=== PATIENT | female | born 1960 | race African-American/Black ===

== ENCOUNTER 2016-09-04 18:36 | Inpatient (IN) | payer OTHER ==
--- NOTE | ~2016-09-04 | HP ---
History And Physical [place] [address] [facility] [place]. [address] NAME: ALEX HARVEY : 56 STATUS : ADM IN [facility]#: [id number] AGE: 55 ADM/REG DATE : 09/04/16 MR#: [id number] REPORT SERV DATE: 09/05/16 DICTATED BY: DELFINO JOSHI DATE: 09/04/16 REPORT STATUS : Draft TRANSCRIBED BY: MODL DATE: 09/04/16 DATE OF ADMISSION: 09/04/2016 POINT OF ENTRY: [facility] Emergency Department. PRIMARY CARE PHYSICIAN: Dr. Erickson. PRIMARY ONCOLOGIST: Dr. Aragon. CHIEF COMPLAINT: Abdominal pain, nausea, and vomiting. HISTORY OF PRESENT ILLNESS: Ms. Harvey is a 55-year-old female with history of HTLV-1 associated T-cell lymphoma, currently undergoing oral chemotherapy who presents to the emergency department today with a few day history of abdominal pain, nausea, vomiting, and anorexia. The family who was at bedside states that she has had 4-5 days of the above-mentioned symptoms. She has also not been eating or drinking much as the family has been trying to push food and water but after just a few sips or bites of either, she stops and says that she is full. They do state she has been able to continue to take her chemotherapy. The patient saw Dr. Aragon in clinic yesterday, where she received some IV fluids. Labs were drawn, which I am unable to see the results of those labs. Initial evaluation in the emergency department for a blood pressure of 100/67, pulse initially 130, it is now improved about 105. She is severely dehydrated with a sodium level of 154, BUN 33, creatinine 1.76, as well as a calcium level of 6.0. Lactate is elevated at 3.7, but white count is normal. Urinalysis is pending. Chest x-ray is clear. CT scan of the abdomen and pelvis shows splenomegaly as well as some mild ascites and nodular densities in the omentum, but otherwise, no evidence of any obstruction or obvious infection in the peritoneum. The patient was given 1 L of normal saline with minimal improvement of the patient's blood pressure and subsequently admitted to the Hospitalist Service for further evaluation and management. She denies any fevers, night sweats, chills, chest pain, palpitations, shortness of breath, cough, sputum production, dysuria, melena, hematochezia, or hemoptysis. Comprehensive system otherwise negative unless listed in history of present illness. PREVIOUS MEDICAL HISTORY: HTLV-1 associated T-cell lymphoma undergoing chemotherapy. SURGICAL HISTORY: 1. Abdominal hysterectomy. 2. Exploratory laparotomy and lysis of adhesions for small bowel obstruction. ALLERGIES: ROBAXIN. History And Physical [address] [address] NAME: ALEX HARVEY : 56 STATUS : ADM IN [facility]#: [id number] AGE: 55 ADM/REG DATE : 09/04/16 MR#: [id number] REPORT SERV DATE: 09/05/16 DICTATED BY: DELFINO JOSHI DATE: 09/04/16 REPORT STATUS : Draft TRANSCRIBED BY: NEELAM DATE: 09/04/16 HOME MEDICATIONS: 1. Decadron 4 mg b.i.d. 2. Revlimid 25 mg at bedtime. SOCIAL HISTORY: Denies any tobacco, alcohol, or illicits. FAMILY MEDICAL HISTORY: Mother with hypertension and coronary disease. Father with coronary disease. Siblings with lung cancer. LABS AND IMAGIN. White count is 8.2, hemoglobin 14.2, hematocrit 41.8, platelet count is 84, INR is 1.5. 2. Sodium 134, potassium 3.2, chloride 117, carbon dioxide 33, BUN 33, creatinine 1.76, glucose 145, calcium 16.0, protein 6.2, albumin 3.4, bilirubin 0.5, ALT 15, AST 9, alkaline phosphatase 103. 3. Lipase is 79. 4. Lactic acid 3.7. 5. CT scan of the abdomen and pelvis shows splenomegaly with mild ascites as well as some nodular densities of the omentum and some retroperitoneal lymphadenopathy. 6. Chest x-ray per my review shows no acute cardiopulmonary abnormality. EKG per my review shows sinus tachycardia with rate 130s. No evidence of any acute ischemia or infarction. PHYSICAL EXAMINATION: VITAL SIGNS: Temperature is 98.6 degrees Fahrenheit, pulse is 130, respirations 24, saturating 96% on room air, blood pressure 100/67. On recheck, pulse is now 107, blood pressure is 89/56. GENERAL: The patient is awake, alert, and in no acute distress, but she is a chronically ill appearing, very cachectic and frail elderly female. Family is at bedside. HEENT: Atraumatic and normocephalic. Slightly dry mucous membranes. Pupils are equal, round, reactive to light and accommodation. Extraocular movements intact. No scleral icterus. NECK: No jugular venous distention or carotid bruits. CARDIAC: Tachycardic rate, regular rhythm. LUNGS: Clear to auscultation bilaterally. No wheezes, rhonchi, or crackles. ABDOMEN: Soft, mildly tender to palpation over all quadrants. No rebound, guarding, or rigidity. EXTREMITIES: Warm and perfused. No cyanosis, clubbing, or edema. Very frail, thin, and cachectic. SKIN: Warm and dry. PSYCH: Affect appropriate. NEURO: Alert and oriented x3. Cranial nerves 2 through 12 grossly intact. Speech is normal. Gait not assessed. ASSESSMENT AND PLAN: Ms. Harvey is a 55-year-old female with HTLV-1 associated lymphoma who is undergoing active chemotherapy who presents with abdominal pain, nausea, vomiting, and found to have evidence of acute kidney injury, hypercalcemia, hypernatremia as well as hypotension. History And Physical [address] [address] NAME: ALEX HARVEY : 56 STATUS : ADM IN [facility]#: [id number] AGE: 55 ADM/REG DATE : 09/04/16 MR#: [id number] REPORT SERV DATE: 09/05/16 DICTATED BY: DELFINO JOSHI DATE: 09/04/16 REPORT STATUS : Draft TRANSCRIBED BY: MODMaya DATE: 09/04/16 PROBLEM LIST: 1. Acute kidney injury and dehydration. 2. Hypernatremia. 3. Hypercalcemia. 4. Hypokalemia. 5. Abdominal pain, nausea, and vomiting. 6. Hypotension. 7. Elevated lactic acid level. 8. T-cell lymphoma undergoing chemotherapy. PLAN: 1. Acute kidney injury and dehydration. I provided aggressive IV fluid hydration, likely secondary to poor oral intake as well as GI losses with some contribution from her hypercalcemia. Checking urine lytes as well as urinalysis. 2. Hypernatremia. After initial fluid resuscitation, we will provide maintenance fluids with hypotonic fluids. 3. Hypercalcemia. Aggressive IV fluid hydration. Checking ionized calcium level, further treatment based on ionized calcium level. 4. Hypotension, likely secondary to dehydration and poor oral intake. However, given underlying chemotherapy, she is at risk for possible infection. She has also been receiving oral Decadron, so relative adrenal insufficiency is also a possibility. We will treat with aggressive IV fluid hydration, empiric antibiotics at least overnight, as well as Solu-Cortef. 5. Elevated lactic acid level. Again given concern for possible infection and given active chemotherapy despite the lack of obvious source and normal white count, we will empirically cover with broad-spectrum antibiotics. Aggressive IV fluid hydration and recheck lactic acid level in three hours. 6. T-cell lymphoma, under active chemotherapy. Holding the patient's chemotherapy as well as Decadron. Consult Oncology for assistance. 7. Deep vein thrombosis prophylaxis. Lovenox subcu. CODE STATUS: The patient wishes to be full code. JCB/MODL Delfino Joshi MD / [id number] CC: Attila Vieira M.D.
--- NOTE | ~2016-09-04 | DS ---
Discharge Summary [address] [place]. [address] NAME: ALEX HARVEY : 56 STATUS : DIS IN PAT#: [id number] AGE: 55 ADM/REG DATE : 09/04/16 MR#: [id number] REPORT SERV DATE: 09/10/16 DICTATED BY: LUIS ALBERTO MARINELLI DATE: 09/09/16 REPORT STATUS : Draft TRANSCRIBED BY: MODL DATE: 09/09/16 ADMISSION DATE: 09/04/2016 DISCHARGE DATE: 09/09/2016 DISCHARGE DIAGNOSES: 1. T-cell lymphoma with carcinomatosis. 2. HTLV-1 infection. 3. Dehydration. 4. Acute kidney injury, now resolved. 5. Hyponatremia, now resolved. 6. Severe protein-calorie malnutrition. 7. History of spinal subdural abscess. 8. Abdominal pain, nausea and vomiting, now resolved. 9. Hypercalcemia of malignancy, currently stable. 10.Hypokalemia, now resolved. CONSULTANTS DURING THIS HOSPITALIZATION: Adrián Aragon M.D., of Hematology/Oncology. INVASIVE PROCEDURES DONE DURING THIS HOSPITALIZATION: None. BRIEF HISTORY OF PRESENT ILLNESS: The patient is a 55-year-old female with T-cell lymphoma with metastatic disease presented to the hospital with abdominal pain, nausea, vomiting, so she was admitted. For detailed history and physical exam, please see note dictated by Dr. Dave Kaur, on 09/04/2016. HOSPITAL COURSE: After being admitted to the hospital, this patient was seen by Oncology and it was thought that this patient would need hospice, hospice was consulted and the patient has been accepted in hospice. In the interim over the last five days, we treated her electrolyte abnormalities with IV fluids and we gave her reasonable pain control. CT of the abdomen and pelvis showed large retroperitoneal adenopathy and small nodules within the mesentery, which was consistent with metastatic disease and carcinomatosis. This patient currently is comfortable and feels well enough, she has been seen by hospice accepted and will be discharged home under the care of hospice. DISCHARGE DISPOSITION: Home. DISCHARGE ACTIVITY: As tolerated. DISCHARGE DIET: As tolerated. DISCHARGE MEDICATIONS: Will be deferred to hospice. DISCHARGE FOLLOWUP: Will be by [facility]. More than 30 minutes spent planning this patient's discharge, discussing followup and arranging hospice care. Discharge Summary [address] [place]. [address] NAME: ALEX HARVEY : 56 STATUS : DIS IN PAT#: [id number] AGE: 55 ADM/REG DATE : 09/04/16 MR#: [id number] REPORT SERV DATE: 09/10/16 DICTATED BY: LUIS ALBERTO MARINELLI DATE: 09/09/16 REPORT STATUS : Draft TRANSCRIBED BY: NEELAM DATE: 09/09/16 DICTATED BY: Attila Reza/NEELAM Luis Alberto Marinelli M.D. / [id number] CC: Attila Reza M.D. Edward Arrowsmith, M.D.
[~2016-09-04 18:36] MED LIST: ALEVE220 MG PO; AMB5 PO; ATV.5 PO; B121000P IM; COMP10B PO; MAXIMUM D3 PO; METHOC750B PO; MIRALAXPKT PO; MOUTH WASH PO; NO HOME MEDS; NYS500UDL PO; PEPTO-BISMOL TA1 TAB PO; PERCOCET1 TA2 PO; PR12.5 PO; SEPTRA DS1 TAB PO; T PO; ULTRAM50 PO; VICODINTAB PO; VITAMIN B PO; ZOFRAN4 PO; ZOVIRAX400 MG PO
[2016-09-04 19:28] LABS: BASOPHILS 1.5 %; BASOPHILS ABSOLUTE 0.12 10/3/uL (0.0-0.16); EOSINOPHILS 1.8 %; EOSINOPHILS ABSOLUTE 0.15 10/3/uL (0.0-0.53); HEMOGLOBIN 14.2 g/dL (12.0-16.0); IMMATURE GRANULOCYTES 0.2 %; IMMATURE GRANULOCYTES ABSOLUTE 0.02 10/3/uL (0.0-0.11); LYMPHOCYTES 46.3 %; LYMPHOCYTES ABSOLUTE 3.79 10/3/uL (0.67-4.30); MEAN CORPUSCULAR HEMOGLOB 30.5 pg (26.0-34.0); MONOCYTES ABSOLUTE 1.39 10/3/uL (0.21-1.20); NEUTROPHILS 33.2 %; NEUTROPHILS ABSOLUTE 2.72 10/3/uL (2.02-8.40); RBC DISTRIBUTION WIDTH 16.4 % (12.0-16.0); RED CELL COUNT 4.65 10/6/uL (4.0-5.6)
[2016-09-04 19:35] LABS: INTERNATIONAL NORMAL RATI 1.5 UNITS (-)
[2016-09-04 19:36] LABS: ER CBC TAT 0 Hrs 21 Mins; HEMATOCRIT 41.8 % (36.0-48.0); MANUAL DIFF NO %; MEAN CORPUSCULAR VOLUME 89.9 fL (80-100); PLATELET COUNT 89 10/3/uL (150-400); WHITE BLOOD CELLS 8.2 10/3/uL (4.5-10.5)
[2016-09-04 19:42] LABS: PARTIAL THROMBO TIME 22.4 SEC (22.5-37.2); PROTIME (NOT ORD) 17.9 SEC (12.0-14.5)
[2016-09-04 19:43] LABS: CHLORIDE, SERUM 117 MMOL/L (96-112); POTASSIUM, SERUM 3.2 MMOL/L (3.5-5.3); SGOT(AST) 9 U/L (5-40); SGPT(ALT) 15 U/L (5-65); TOTAL PROTEIN 6.2 G/DL (6.0-8.5)
[2016-09-04 19:44] LABS: A/G RATIO 1.2 (0.7-1.9); ALBUMIN 3.4 G/DL (3.5-5.0); ALKALINE PHOSPHATASE 103 U/L (45-117); BUN (BLOOD UREA NITROGEN) 33 MG/DL (6-23); CO2 (CARBON DIOXIDE) 33 MMOL/L (24-34); CREATININE 1.76 MG/DL (0.55-1.02); GFR AFRICAN AMERICAN 37 ML/MIN (>=60); GFR NON AFRICAN AMERICAN 32 ML/MIN (>=60); GLOBULIN 2.8 G/DL (2.5-4.1); GLUCOSE, SERUM 145 MG/DL (60-99); SODIUM, SERUM 154 MMOL/L (135-148); TOTAL BILIRUBIN 0.5 MG/DL (0-1.2)
[2016-09-04 19:46] LABS: LACTATE 3.7 MMOL/L (0.3-2.4)
[2016-09-04 19:54] LABS: BAND NEUTROPHILS 2 %; BASOPHILS 3 %; BASOPHILS ABSOLUTE (CALC) 0.25 10/3/uL (0.0-0.16); ER DIFF TAT 0 Hrs 39 Mins; LYMPHOCYTES 46 %; LYMPHOCYTES ABSOLUTE (CALC) 3.77 10/3/uL (0.67-4.30); MONOCYTES 10 %; MONOCYTES ABSOLUTE (CALC) 0.82 10/3/uL (0.21-1.20); NEUTROPHILS ABSOLUTE (CALC) 3.36 10/3/uL (2.02-8.40); SEGMENTED NEUTROPHIL (0) 39 %; TOTAL NUCLEATED CELLS 100
[2016-09-04 19:55] LABS: ATYPICAL LYMPH FEW (3-5%) (0-5%); PLATELET ESTIMATE DEC (ADEQUATE); TARGET CELLS OCC (1-2/OIF) (0-1/OIF)
[2016-09-04] MEDS ORDERED: DEX4 PO (22:15)
[2016-09-04] MEDS ORDERED: REVLIMID25 MG PO (22:16)
[2016-09-04 23:47] LABS: ASCORBIC ACID (UR NOT ORDER) NEG (NEG); BILIRUBIN, URINE NEGATIVE (NEG); ER URINALYSIS TAT 0 Hrs 00 Mins; KETONE, URINE NEGATIVE (NEG); LEUKOCYTE ESTERASE(NOT OR SMALL (NEG); NITRITE (URINE) NEG (NEG); WBC (NOT ORDERED) (RFLEX) 4 (0-5)
[2016-09-04 23:55] LABS: PROCALCITONIN 0.43 ng/mL (<0.5)
[2016-09-05 02:09] LABS: CREATININE, URINE 51.8 MG/DL
[2016-09-05 06:57] LABS: HEMATOCRIT 31.5 % (36.0-48.0); MEAN CORPUS HGB CONC 34.9 g/dL (32.0-36.0); MEAN CORPUSCULAR HEMOGLOB 30.8 pg (26.0-34.0); MEAN CORPUSCULAR VOLUME 88.2 fL (80-100); PLATELET COUNT 73 10/3/uL (150-400); RBC DISTRIBUTION WIDTH 16.4 % (12.0-16.0); RED CELL COUNT 3.57 10/6/uL (4.0-5.6); WHITE BLOOD CELLS 5.6 10/3/uL (4.5-10.5)
[2016-09-05 06:58] LABS: MANUAL DIFF YES %
[2016-09-05 07:21] LABS: BUN (BLOOD UREA NITROGEN) 30 MG/DL (6-23); CHLORIDE, SERUM 120 MMOL/L (96-112); CREATININE 1.42 MG/DL (0.55-1.02); FREE T4 0.99 NG/DL (0.76-1.46); GFR AFRICAN AMERICAN 47 ML/MIN (>=60); GFR NON AFRICAN AMERICAN 41 ML/MIN (>=60); GLUCOSE, SERUM 146 MG/DL (60-99); PHOSPHORUS, SERUM 3.1 MG/DL (2.5-4.5); POTASSIUM, SERUM 3.1 MMOL/L (3.5-5.3); SODIUM, SERUM 155 MMOL/L (135-148)
[2016-09-05 07:22] LABS: ALBUMIN 2.5 G/DL (3.5-5.0); CALCIUM, SERUM 12.8 MG/DL (8.5-10.4); CO2 (CARBON DIOXIDE) 26 MMOL/L (24-34); ULTRASENSITIVE TSH 0.208 MCIU/ML (0.358-3.740)
[2016-09-05 07:26] LABS: BAND NEUTROPHILS 5 %; LYMPHOCYTES 34 %; MONOCYTES 16 %; SEGMENTED NEUTROPHIL (0) 45 %; TOTAL NUCLEATED CELLS 100
[2016-09-05 07:29] LABS: ATYPICAL LYMPH FEW (3-5%) (0-5%); PLATELET ESTIMATE DEC (ADEQUATE)
[2016-09-06 05:26] LABS: BASOPHILS 0.7 %; BASOPHILS ABSOLUTE 0.04 10/3/uL (0.0-0.16); EOSINOPHILS 0.7 %; EOSINOPHILS ABSOLUTE 0.04 10/3/uL (0.0-0.53); HEMATOCRIT 32.9 % (36.0-48.0); HEMOGLOBIN 11.3 g/dL (12.0-16.0); LYMPHOCYTES 52.7 %; LYMPHOCYTES ABSOLUTE 3.19 10/3/uL (0.67-4.30); MEAN CORPUS HGB CONC 34.3 g/dL (32.0-36.0); MEAN CORPUSCULAR HEMOGLOB 30.5 pg (26.0-34.0); MEAN CORPUSCULAR VOLUME 88.9 fL (80-100); MEAN PLATELET VOLUME 12.8 fL (9.2-13.0); MONOCYTES 16.7 %; MONOCYTES ABSOLUTE 1.01 10/3/uL (0.21-1.20); NEUTROPHILS 29.2 %; NEUTROPHILS ABSOLUTE 1.77 10/3/uL (2.02-8.40); PLATELET COUNT 71 10/3/uL (150-400); RBC DISTRIBUTION WIDTH 16.2 % (12.0-16.0); WHITE BLOOD CELLS 6.1 10/3/uL (4.5-10.5)
[2016-09-06 05:29] LABS: MANUAL DIFF NO %
[2016-09-06 05:42] LABS: BUN (BLOOD UREA NITROGEN) 24 MG/DL (6-23); CHLORIDE, SERUM 126 MMOL/L (96-112); CO2 (CARBON DIOXIDE) 24 MMOL/L (24-34); CREATININE 1.21 MG/DL (0.55-1.02); GFR AFRICAN AMERICAN 58 ML/MIN (>=60); GFR NON AFRICAN AMERICAN 50 ML/MIN (>=60); GLUCOSE, SERUM 115 MG/DL (60-99); POTASSIUM, SERUM 2.9 MMOL/L (3.5-5.3); SODIUM, SERUM 150 MMOL/L (135-148)
[2016-09-06 05:52] LABS: PLATELET ESTIMATE DEC (ADEQUATE)
[2016-09-06 05:53] LABS: TARGET CELLS FEW (3-10/OIF) (0-1/OIF)
[2016-09-07 03:55] LABS: HEMATOCRIT 33.3 % (36.0-48.0); HEMOGLOBIN 11.4 g/dL (12.0-16.0); MEAN CORPUS HGB CONC 34.2 g/dL (32.0-36.0); MEAN CORPUSCULAR HEMOGLOB 30.2 pg (26.0-34.0); MEAN CORPUSCULAR VOLUME 88.1 fL (80-100); PLATELET COUNT 65 10/3/uL (150-400); RBC DISTRIBUTION WIDTH 16.2 % (12.0-16.0); RED CELL COUNT 3.78 10/6/uL (4.0-5.6); WHITE BLOOD CELLS 5.3 10/3/uL (4.5-10.5)
[2016-09-07 03:56] LABS: MANUAL DIFF YES %
[2016-09-07 04:07] LABS: CHLORIDE, SERUM 123 MMOL/L (96-112); CO2 (CARBON DIOXIDE) 22 MMOL/L (24-34); GFR AFRICAN AMERICAN 82 ML/MIN (>=60); GFR NON AFRICAN AMERICAN 71 ML/MIN (>=60); GLUCOSE, SERUM 112 MG/DL (60-99); SODIUM, SERUM 154 MMOL/L (135-148)
[2016-09-07 04:08] LABS: BUN (BLOOD UREA NITROGEN) 20 MG/DL (6-23); CALCIUM, SERUM 9.2 MG/DL (8.5-10.4); POTASSIUM, SERUM 3.2 MMOL/L (3.5-5.3)
[2016-09-07 04:27] LABS: BAND NEUTROPHILS 1 %; LYMPHOCYTES ABSOLUTE (CALC) 3.76 10/3/uL (0.67-4.30); NEUTROPHILS ABSOLUTE (CALC) 1.54 10/3/uL (2.02-8.40); PLATELET ESTIMATE DEC (ADEQUATE); RBC MORPHOLOGY NORM (NORMAL); SEGMENTED NEUTROPHIL (0) 28 %; TOTAL NUCLEATED CELLS 100
[2016-09-07 04:28] LABS: LYMPHOCYTES 61 %; MONOCYTES 10 %
[2016-09-08 06:09] LABS: HEMATOCRIT 35.6 % (36.0-48.0); HEMOGLOBIN 12.4 g/dL (12.0-16.0); MANUAL DIFF YES %; MEAN CORPUS HGB CONC 34.8 g/dL (32.0-36.0); MEAN CORPUSCULAR HEMOGLOB 30.4 pg (26.0-34.0); MEAN CORPUSCULAR VOLUME 87.3 fL (80-100); MEAN PLATELET VOLUME 11.6 fL (9.2-13.0); PLATELET COUNT 65 10/3/uL (150-400); RBC DISTRIBUTION WIDTH 15.8 % (12.0-16.0); RED CELL COUNT 4.08 10/6/uL (4.0-5.6); WHITE BLOOD CELLS 6.2 10/3/uL (4.5-10.5)
[2016-09-08 06:22] LABS: ALBUMIN 2.7 G/DL (3.5-5.0); CALCIUM, SERUM 8.9 MG/DL (8.5-10.4); CHLORIDE, SERUM 122 MMOL/L (96-112); CO2 (CARBON DIOXIDE) 21 MMOL/L (24-34); CREATININE 0.76 MG/DL (0.55-1.02); GFR AFRICAN AMERICAN 101 ML/MIN (>=60); GFR NON AFRICAN AMERICAN 87 ML/MIN (>=60); GLUCOSE, SERUM 109 MG/DL (60-99); POTASSIUM, SERUM 3.2 MMOL/L (3.5-5.3); SODIUM, SERUM 153 MMOL/L (135-148)
[2016-09-08 06:23] LABS: BUN (BLOOD UREA NITROGEN) 13 MG/DL (6-23)
[2016-09-08 06:29] LABS: BAND NEUTROPHILS 1 %; EOSINOPHILS 1 %; EOSINOPHILS ABSOLUTE (CALC) 0.06 10/3/uL (0.0-0.53); LYMPHOCYTES 58 %; MONOCYTES 6 %; MONOCYTES ABSOLUTE (CALC) 0.37 10/3/uL (0.21-1.20); NEUTROPHILS ABSOLUTE (CALC) 2.17 10/3/uL (2.02-8.40); SEGMENTED NEUTROPHIL (0) 34 %; TOTAL NUCLEATED CELLS 100
[2016-09-08 06:30] LABS: PLATELET ESTIMATE DEC (ADEQUATE); RBC MORPHOLOGY NORM (NORMAL)
[2016-09-09 07:38] LABS: BUN (BLOOD UREA NITROGEN) 6 MG/DL (6-23); CALCIUM, SERUM 8.5 MG/DL (8.5-10.4); CHLORIDE, SERUM 118 MMOL/L (96-112); CO2 (CARBON DIOXIDE) 22 MMOL/L (24-34); CREATININE 0.74 MG/DL (0.55-1.02); GFR AFRICAN AMERICAN 104 ML/MIN (>=60); GFR NON AFRICAN AMERICAN 90 ML/MIN (>=60); GLUCOSE, SERUM 116 MG/DL (60-99); POTASSIUM, SERUM 3.7 MMOL/L (3.5-5.3); SODIUM, SERUM 148 MMOL/L (135-148)
== END 2016-09-09 13:32 | disposition home health service (06) | DRG 840 ==
LOC: ER 18:36 → 4SO 23:37 → SDC/OF 09-06 12:57 → 4SO 09-06 13:01
PROVIDERS: Emergency Medicine; Hospitalist; Internal Medicine; Internal Medicine Hematology & Oncology
DX: C91.50 Adult T-cell lymphoma/leukemia (HTLV-1-associated) not having achieved remission (principal); E43 Unspecified severe protein-calorie malnutrition; N17.9 Acute kidney failure, unspecified; E87.0 Hyperosmolality and hypernatremia; D69.59 Other secondary thrombocytopenia; I95.9 Hypotension, unspecified; Z68.1 Body mass index [BMI] 19.9 or less, adult; Z51.5 Encounter for palliative care; E83.52 Hypercalcemia; E86.0 Dehydration; Z79.899 Other long term (current) drug therapy; Z88.8 Allergy status to other drugs, medicaments and biological substances; E87.6 Hypokalemia; T45.1X5A Adverse effect of antineoplastic and immunosuppressive drugs, initial encounter; Y92.009 Unspecified place in unspecified non-institutional (private) residence as the place of occurrence of the external cause
CPT/HCPCS: 71020; 74176; 80048; 80053; 80069; 81001; 82040; 82330; 82533; 82570; 83605; 83615; 83690; 83735; 83935; 84132; 84145; 84300; 84439; 84443; 85025; 85610; 85730; 87040; 87086; 93005; 96361; 96374; 96375; 96376; 99291; A9270-GY; J1720; J2405; J2430; J2543; J3370